=== PATIENT | female | born 1965 | race Caucasian/White ===

== ENCOUNTER → 2016-11-19 | Outpatient (CLI) | payer MEDICAID ==
--- NOTE | 2016-11-21 08:49 | MM ---
Reason for exam: screening (asymptomatic). Last mammogram was performed 2 years ago. History: Family history of breast cancer in maternal grandmother. Took hormonal contraceptives for 1 year 6 months. Physical Findings: A clinical breast exam by your physician is recommended on an annual basis and results should be correlated with mammographic findings. MG 3D Screening Mammo W/Cad Bilateral CC and MLO view(s) were taken. Prior study comparison: November 16, 2014, bilateral MG screening mammo w CAD. June 15, 2013, bilateral digital screening mammo w/CAD. June 01, 2012, bilateral digital screening mammo w/CAD. The breast tissue is heterogeneously dense. This may lower the sensitivity of mammography. No significant changes when compared with prior studies. ASSESSMENT: Negative, BI-RAD 1 RECOMMENDATION: Routine screening mammogram of both breasts in 1 year.
== END | disposition home or self-care (01) ==
LOC: RADMAMWWP 16:31
PROVIDERS: ATTEND Obstetrics & Gynecology
DX: Z12.31 Encounter for screening mammogram for malignant neoplasm of breast (principal)
CPT/HCPCS: 77063; G0202

== ENCOUNTER → 2016-11-26 | Outpatient (CLI) | payer MEDICAID ==
[2016-11-26 08:19] LABS: CH 30.7; CHCM 33.7; HCT 39.7 % (34.0-46.0); HDW 2.31; HGB 13.3 gm/dL (11.4-16.0); MCH 30.7 pg (25.0-35.0); MCHC 33.5 g/dL (31.0-37.0); MCV 91.5 fL (80.0-100.0); Mean Platelet Volume 7.3; RBC 4.34 m/uL (3.80-5.40); RDW 12.5 % (11.5-15.5); WBC 6.2 k/uL (3.8-10.6)
[2016-11-26 08:35] LABS: ALT 28 U/L (9-52); AST 19 U/L (14-36); Alkaline Phosphatase 49 U/L (38-126); Anion Gap 12 mmol/L; Blood Urea Nitrogen 16 mg/dL (7-17); Carbon Dioxide 25 mmol/L (22-30); Chloride 106 mmol/L (98-107); Cholesterol 174 mg/dL (<200); Glucose 83 mg/dL (74-99); HDL Cholesterol 79 mg/dL (40-60); Non-African American GFR(MDRD) >60 (>60 ml/min/1.73 sqM); Potassium 4.8 mmol/L (3.5-5.1); Sodium 143 mmol/L (137-145); Total Bilirubin 0.6 mg/dL (0.2-1.3); Total Protein 7.1 g/dL (6.3-8.2); Triglycerides 40 mg/dL (<150)
== END | disposition home or self-care (01) ==
LOC: LABWHC1 06:31
PROVIDERS: ATTEND Family Medicine
DX: Z00.00 Encounter for general adult medical examination without abnormal findings (principal)
CPT/HCPCS: 36415; 80053; 80061; 84439; 84443; 85027

== ENCOUNTER → 2018-01-13 | Outpatient (CLI) | payer MEDICAID | END | disposition home or self-care (01) | LOC: LABWHC1 07:46 | PROVIDERS: ATTEND Obstetrics & Gynecology | DX: N95.1 Menopausal and female climacteric states (principal) | CPT/HCPCS: 36415; 83001 ==

== ENCOUNTER → 2018-01-20 | Outpatient (CLI) | payer MEDICAID, BC ==
--- NOTE | 2018-01-21 08:14 | BD ---
EXAMINATION TYPE: MG DEXA axial skeleton. DATE OF EXAM: 01/20/2018 COMPARISON: NONE CLINICAL HISTORY: N951 MENOPAUSAL Height: 5 FT 2 1/4 IN Weight: 131 FRAX RISK QUESTIONS: Alcohol (3 or more units per day): NO Family History (Parent hip fracture): UNKNOWN Glucocorticoids (More than 3mos): YES (Ex: prednisone, prednisolone, methylprednisolone, dexamethasone, and hydrocortisone). History of Fracture in Adulthood: YES Secondary Osteoporosis: 1. Type 1 Diabetes: NO 2. Hyperthyroidism: NO 3. Menopause before 45: NO 4. Malnutrition: NO 5. Chronic liver disease: NO Rheumatoid Arthritis: NO Current Tobacco Use: NO RISK FACTORS HISTORY OF: Active: NO Postmenopausal woman: 2011 MEDICATIONS: Prednisone or other steroids: YES How Long: OVER 20 YEARS Additional Medications: ALBUTEROL,SYMBICORT, SINGULAIR, EFFEXOR, MULTI VIT ,CALCIUM Additional History: ASTHMATIC EXAM MEASUREMENTS: Bone mineral densitometry was performed using the [employer] System. Bone mineral density as measured about the Lumbar spine is: ----- L1-L4(G/cm2): 1.032 T Score Values are as follows: ----- L2: -1.8 ----- L3: -1.0 ----- L4: -1.1 ----- L1-L4: -1.2 BASELINE Bone mineral density about the R hip (g/cm2): 0.958 Bone mineral density about the L hip (g/cm2): 0.809 T Score values are as follows: -----R Neck: -0.6 -----L Neck: -1.6 -----R Total: 0.2 -----L Total: -0.8 BASELINE IMPRESSION: Osteopenia lumbar spine. NOTE: T-SCORE=SD OF THE YOUNG ADULT MEAN.
== END | disposition home or self-care (01) ==
LOC: RADBDWWP 16:07
PROVIDERS: ATTEND Obstetrics & Gynecology
DX: M85.88 Other specified disorders of bone density and structure, other site (principal)
CPT/HCPCS: 77080

== ENCOUNTER → 2018-02-10 | Outpatient (CLI) | payer MEDICAID, BC ==
--- NOTE | 2018-02-12 11:41 | MM ---
Reason for exam: screening (asymptomatic). Last mammogram was performed 1 year and 3 months ago. History: Family history of breast cancer in maternal grandmother. Took hormonal contraceptives for 1 year 6 months. Physical Findings: A clinical breast exam by your physician is recommended on an annual basis and results should be correlated with mammographic findings. MG 3D Screening Mammo W/Cad Bilateral CC and MLO view(s) were taken. Prior study comparison: November 19, 2016, bilateral MG 3d screening mammo w/cad. November 16, 2014, bilateral MG screening mammo w CAD. The breast tissue is heterogeneously dense. This may lower the sensitivity of mammography. No significant changes when compared with prior studies. ASSESSMENT: Negative, BI-RAD 1 RECOMMENDATION: Routine screening mammogram of both breasts in 1 year.
== END | disposition home or self-care (01) ==
LOC: RADMAMWWP 16:20
PROVIDERS: ATTEND Obstetrics & Gynecology
DX: Z12.31 Encounter for screening mammogram for malignant neoplasm of breast (principal)
CPT/HCPCS: 77063; 77067

== ENCOUNTER → 2018-03-09 | Outpatient (CLI) | payer MEDICAID, BC ==
[2018-03-09 08:30] LABS: HCT 39.7 % (34.0-46.0); HGB 13.4 gm/dL (11.4-16.0); MCH 29.7 pg (25.0-35.0); MCHC 33.8 g/dL (31.0-37.0); MCV 87.8 fL (80.0-100.0); Mean Platelet Volume 6.8; Platelet Count 307 k/uL (150-450); RBC 4.53 m/uL (3.80-5.40); RDW 12.4 % (11.5-15.5); WBC 4.4 k/uL (3.8-10.6)
[2018-03-09 08:50] LABS: ALT 27 U/L (9-52); AST 23 U/L (14-36); Albumin 4.3 g/dL (3.5-5.0); Alkaline Phosphatase 52 U/L (38-126); Anion Gap 11 mmol/L; Blood Urea Nitrogen 13 mg/dL (7-17); Calcium 9.6 mg/dL (8.4-10.2); Carbon Dioxide 28 mmol/L (22-30); Chloride 101 mmol/L (98-107); Cholesterol 188 mg/dL (<200); Glucose 81 mg/dL (74-99); HDL Cholesterol 83 mg/dL (40-60); LDL Cholesterol,Calculated 96 mg/dL (0-99); Potassium 4.4 mmol/L (3.5-5.1); Sodium 140 mmol/L (137-145); Total Bilirubin 0.6 mg/dL (0.2-1.3); Total Protein 6.8 g/dL (6.3-8.2); Triglycerides 45 mg/dL (<150)
== END | disposition home or self-care (01) ==
LOC: LABWHC1 07:53
PROVIDERS: ATTEND Family Medicine
DX: Z00.00 Encounter for general adult medical examination without abnormal findings (principal); M85.80 Other specified disorders of bone density and structure, unspecified site
CPT/HCPCS: 36415; 80053; 80061; 82306; 84439; 84443; 85027

== ENCOUNTER → 2019-02-17 | Outpatient (CLI) | payer MEDICAID, OTHER ==
[2019-02-17 16:53] LABS: Basophils % (A) 0 %; Eosinophils # (A) 0.1 k/uL (0-0.7); Eosinophils % (A) 1 %; HCT 39.4 % (34.0-46.0); HGB 12.8 gm/dL (11.4-16.0); Lymphocytes # (A) 1.1 k/uL (1.0-4.8); Lymphocytes % (A) 14 %; MCH 29.2 pg (25.0-35.0); MCHC 32.5 g/dL (31.0-37.0); MCV 89.7 fL (80.0-100.0); Monocytes # (A) 0.5 k/uL (0-1.0); Monocytes % (A) 6 %; Neutrophils # (A) 6.5 k/uL (1.3-7.7); Neutrophils % (A) 79 %; Platelet Count 391 k/uL (150-450); RDW 13.6 % (11.5-15.5); WBC 8.3 k/uL (3.8-10.6)
== END ==
LOC: LABWHC1 15:32
PROVIDERS: ATTEND Allergy & Immunology
DX: J45.40 Moderate persistent asthma, uncomplicated (principal)
CPT/HCPCS: 36415; 85025

== ENCOUNTER → 2019-05-26 | Outpatient (CLI) | payer MEDICAID, BC ==
--- NOTE | 2019-05-27 09:15 | MM ---
Reason for exam: screening (asymptomatic). Last mammogram was performed 1 year and 3 months ago. History: Family history of breast cancer in maternal grandmother. Took hormonal contraceptives for 1 year 6 months. Physical Findings: A clinical breast exam by your physician is recommended on an annual basis and results should be correlated with mammographic findings. MG 3D Screening Mammo W/Cad Bilateral CC and MLO view(s) were taken. Prior study comparison: February 10, 2018, bilateral MG 3d screening mammo w/cad. November 19, 2016, bilateral MG 3d screening mammo w/cad. The breast tissue is heterogeneously dense. This may lower the sensitivity of mammography. There is no discrete abnormality. No significant changes when compared with prior studies. ASSESSMENT: Negative, BI-RAD 1 RECOMMENDATION: Routine screening mammogram of both breasts in 1 year.
== END | disposition home or self-care (01) ==
LOC: RADMAMWWP 15:34
PROVIDERS: ATTEND Obstetrics & Gynecology
DX: Z12.31 Encounter for screening mammogram for malignant neoplasm of breast (principal)
CPT/HCPCS: 77063; 77067

== ENCOUNTER → 2020-01-13 | Outpatient (CLI) | payer MEDICAID, BC ==
[2020-01-13 10:40] LABS: ALT 12 U/L (8-44); AST 18 U/L (13-35); African American GFR (CKD) 119.8 (60.0-200.0); Alkaline Phosphatase 61 U/L (41-126); BUN/Creat Ratio 23.33 Ratio (12.00-20.00); Calcium 9.2 mg/dL (8.7-10.3); Carbon Dioxide 30.7 mmol/L (21.6-31.8); Chloride 105 mmol/L (96-109); Chol/HDL Ratio 2.25; Cholesterol 187 mg/dL (0-200); Globulin 2.1 g/dL (1.6-3.3); Glucose 77 mg/dL (70-110); Non-African American GFR(CKD) 103.3 (60.0-200.0); Potassium 4.1 mmol/L (3.5-5.5); Sodium 140 mmol/L (135-145); Total Bilirubin 0.7 mg/dL (0.3-1.2); Total Protein 6.5 g/dL (6.2-8.2); Triglycerides <50.0 mg/dL (0.0-149.0)
== END | disposition home or self-care (01) ==
LOC: LABWHC1 06:54
PROVIDERS: ATTEND Family Medicine
DX: Z00.00 Encounter for general adult medical examination without abnormal findings (principal)
CPT/HCPCS: 36415; 80053; 80061; 84443

== ENCOUNTER → 2021-01-08 | Outpatient (CLI) | payer MEDICAID, BC | END | disposition home or self-care (01) | LOC: CPPFTMAIN 16:06 | PROVIDERS: ATTEND Allergy & Immunology | DX: J44.9 Chronic obstructive pulmonary disease, unspecified (principal) | CPT/HCPCS: 94060; 94726; 94729 ==

== ENCOUNTER → 2021-01-11 | Outpatient (CLI) | payer MEDICAID, BC ==
--- NOTE | 2021-01-11 16:58 | BD ---
EXAMINATION TYPE: Axial Bone Density DATE OF EXAM: 01/11/2021 COMPARISON: 01/20/2018 CLINICAL HISTORY: Postmenopausal screening Height: 5 FT 2 IN Weight: 131 FRAX RISK QUESTIONS: Alcohol (3 or more units per day): NO Family History (Parent hip fracture): UNKNOWN Glucocorticoids (More than 3mos): YES (Ex: prednisone, prednisolone, methylprednisolone, dexamethasone, and hydrocortisone). History of Fracture in Adulthood: YES Secondary Osteoporosis: 1. Type 1 Diabetes: NO 2. Hyperthyroidism: NO 3. Menopause before 45: NO 4. Malnutrition: NO 5. Chronic liver disease: NO Rheumatoid Arthritis: NO Current Tobacco Use: NO RISK FACTORS HISTORY OF: Surgery to Spine/Hip(right/left)/Wrist (right/left): NO Family History of Osteoporosis is: UNSURE Active: NO Diet low in dairy products/other sources of calcium: NO Postmenopausal woman: 2011 Take estrogen and/or progesterone medications: NONE Lost more than 2 inches in height since high school: NO MEDICATIONS: Additional Medications: ALBUTEROL, SYMBICORT, PROZAC, SINGULAIR, ZYRTEC Additional History: ASTHMA EXAM MEASUREMENTS: Bone mineral densitometry was performed using the [employer] System. Bone mineral density as measured about the Lumbar spine is: ----- L1-L4(G/cm2): 0.973 T Score Values are as follows: ----- L2: -2.4 ----- L3: -1.4 ----- L4: -1.9 ----- L1-L4: -1.7 Bone mineral density has: DECREASED -6.6 % since study of: 2017 Bone mineral density about the R hip (g/cm2): 0.814 Bone mineral density about the L hip (g/cm2): 0.809 T Score values are as follows: -----R Neck: -1.6 -----L Neck: -1.6 -----R Total: -0.7 -----L Total: -1.0 Bone mineral density has: DECREASED -2.8 % since study of: 2017 IMPRESSION: Osteopenia (T Score between -2.5 and -1). There is slightly increased risk of fracture and the patient may be considered for treatment. Re-Screen 2-5 years. NOTE: T-SCORE=SD OF THE YOUNG ADULT MEAN.
== END | disposition home or self-care (01) ==
LOC: RADBDWWP 07:14
PROVIDERS: ATTEND Obstetrics & Gynecology
DX: M85.80 Other specified disorders of bone density and structure, unspecified site (principal)
CPT/HCPCS: 77080

== ENCOUNTER → 2021-01-30 | Outpatient (CLI) | payer MEDICAID, BC ==
--- NOTE | 2021-02-01 09:58 | MM ---
Reason for exam: screening (asymptomatic). Last mammogram was performed 1 year and 8 months ago. History: Family history of breast cancer in maternal grandmother. Took hormonal contraceptives for 1 year 6 months. Physical Findings: A clinical breast exam by your physician is recommended on an annual basis and results should be correlated with mammographic findings. MG 3D Screening Mammo W/Cad Bilateral CC and MLO view(s) were taken. Prior study comparison: May 26, 2019, bilateral MG 3d screening mammo w/cad. February 10, 2018, bilateral MG 3d screening mammo w/cad. The breast tissue is heterogeneously dense. This may lower the sensitivity of mammography. There is no discrete abnormality. No significant changes when compared with prior studies. ASSESSMENT: Negative, BI-RAD 1 RECOMMENDATION: Routine screening mammogram of both breasts in 1 year.
== END | disposition home or self-care (01) ==
LOC: RADMAMWWP 09:40
PROVIDERS: ATTEND Obstetrics & Gynecology
DX: Z12.31 Encounter for screening mammogram for malignant neoplasm of breast (principal); Z80.3 Family history of malignant neoplasm of breast
CPT/HCPCS: 77063; 77067

== ENCOUNTER → 2021-02-25 | Outpatient (CLI) | payer MEDICAID, BC ==
--- NOTE | 2021-02-25 15:41 | XR ---
EXAMINATION TYPE: XR chest 2V DATE OF EXAM: 02/25/2021 COMPARISON: NONE HISTORY: Shortness of breath TECHNIQUE: Frontal and lateral views of the chest are obtained. FINDINGS: Scattered senescent parenchymal changes noted. Hyperinflation compatible with COPD. No evidence for infiltrate. No evidence for atelectasis. Heart size is stable. Mediastinal structures are stable and grossly unremarkable. No evidence for hilar prominence. Degenerative changes dorsal spine. IMPRESSION: 1. No evidence for acute pulmonary disease.
== END | disposition home or self-care (01) ==
LOC: RADXRMAIN 15:25
PROVIDERS: ATTEND Allergy & Immunology
DX: R06.02 Shortness of breath (principal)
CPT/HCPCS: 71046

== ENCOUNTER → 2021-02-28 | Outpatient (CLI) | payer MEDICAID, BC ==
[2021-02-28 10:33] LABS: Basophils # (A) 0.02 X 10*3/uL (0.00-0.10); Basophils % (A) 0.4 %; Eosinophils # (A) 0.08 X 10*3/uL (0.04-0.35); Eosinophils % (A) 1.5 %; HCT 39.7 % (37.2-46.3); HGB 13.2 g/dL (12.0-15.0); Lymphocytes % (A) 18.6 %; MCH 29.7 pg (27.0-32.0); MCHC 33.2 g/dL (32.0-37.0); MCV 89.4 fL (80.0-97.0); Mean Platelet Volume 9.4 fL (9.5-12.2); Monocytes # (A) 0.66 X 10*3/uL (0.20-1.00); Monocytes % (A) 12.3 %; Neutrophils # (A) 3.61 X 10*3/uL (1.80-7.70); Platelet Count 287 X 10*3/uL (140-440); RBC 4.44 X 10*6/uL (4.10-5.20); WBC 5.38 X 10*3/uL (4.50-10.00)
[2021-03-01 12:57] LABS: Alpha 1 Anti-Trypsin 117 mg/dL (90 - 200)
== END | disposition home or self-care (01) ==
LOC: LABWHC1 07:16
PROVIDERS: ATTEND Allergy & Immunology
DX: J45.40 Moderate persistent asthma, uncomplicated (principal)
CPT/HCPCS: 36415; 82103; 82104; 82785; 85025

== ENCOUNTER → 2021-12-02 | Outpatient (CLI) | payer MEDICAID, BC ==
[2021-12-02 10:10] LABS: HCT 38.1 % (37.2-46.3); HGB 12.6 g/dL (12.0-15.0); MCH 29.4 pg (27.0-32.0); MCHC 33.1 g/dL (32.0-37.0); MCV 88.8 fL (80.0-97.0); Mean Platelet Volume 9.2 fL (9.5-12.2); Platelet Count 293 X 10*3/uL (140-440); RBC 4.29 X 10*6/uL (4.10-5.20); RDW 12.1 % (11.5-14.5); WBC 4.44 X 10*3/uL (4.50-10.00)
[2021-12-02 10:44] LABS: African American GFR (CKD) 112.3 (60.0-200.0); Albumin 4.5 g/dL (3.8-4.9); Albumin/Globulin Ratio 1.96 (1.60-3.17); Anion Gap 11.4 mmol/L (10.00-18.00); BUN/Creat Ratio 21.57 Ratio (12.00-20.00); Basophils # (A) 0.03 X 10*3/uL (0.00-0.10); Basophils % (A) 0.7 %; Blood Urea Nitrogen 15.1 mg/dL (9.0-27.0); Calcium 9.3 mg/dL (8.7-10.3); Carbon Dioxide 23.6 mmol/L (20.0-27.5); Eosinophils # (A) 0.42 X 10*3/uL (0.04-0.35); Eosinophils % (A) 9.5 %; Globulin 2.3 g/dL (1.6-3.3); HDL Cholesterol 62.1 mg/dL (40.00-60.00); Lymphocytes # (A) 1.18 X 10*3/uL (0.90-5.00); Lymphocytes % (A) 26.6 %; Monocytes # (A) 0.35 X 10*3/uL (0.20-1.00); Monocytes % (A) 7.9 %; Neutrophils # (A) 2.45 X 10*3/uL (1.80-7.70); Neutrophils % (A) 55.1 %; Non-African American GFR(CKD) 96.9 (60.0-200.0); T4, Free (Free Thyroxine) 1.1 ng/dL (0.800-1.800); Total Bilirubin 0.3 mg/dL (0.30-1.20); Total Protein 6.8 g/dL (6.2-8.2); Triglycerides 39.9 mg/dL (0.00-149.00)
[2021-12-02 10:52] LABS: Chol/HDL Ratio 2.58 Ratio; LDL Cholesterol,Direct Reflex 88.6 mg/dL (0.00-129.00)
== END | disposition home or self-care (01) ==
LOC: LABWHC1 07:19
PROVIDERS: ATTEND Family Medicine
DX: Z00.00 Encounter for general adult medical examination without abnormal findings (principal); R53.83 Other fatigue; E55.9 Vitamin D deficiency, unspecified
CPT/HCPCS: 36415; 80053; 80061; 82306; 83721; 84439; 84443; 85025

== ENCOUNTER → 2022-05-02 | Outpatient (CLI) | payer MEDICAID, BC ==
--- NOTE | 2022-05-06 08:05 | MM ---
Reason for Exam: Screening (asymptomatic). Last mammogram was performed 1 year(s) and 4 month(s) ago. Patient History: Menarche at age 14. First Full-Term at age 26. Postmenopausal. Hormonal Contraceptives for 1 year, 6 months, until age 44. Maternal grandmother had breast cancer. Risk Values: Tigist 5 year model risk: 1.2%. NCI Lifetime model risk: 8.1%. Prior Study Comparison: 02/10/2018 Bilateral Screening Mammogram, [facility]. 05/26/2019 Bilateral Screening Mammogram, [facility]. 01/30/2021 Bilateral Screening Mammogram, [facility]. Tissue Density: The breast tissue is heterogeneously dense. This may lower the sensitivity of mammography. Findings: Analyzed By CAD. There is no suspicious group of microcalcifications or new suspicious mass in either breast. Overall Assessment: Negative, BI-RAD 1 Management: Screening Mammogram of both breasts in 1 year. A clinical breast exam by your physician is recommended on an annual basis and results should be correlated with mammographic findings. Electronically signed and approved by: Suleman Norton M.D. Radiologis
== END | disposition home or self-care (01) ==
LOC: RADMAMWWP 16:16
PROVIDERS: ATTEND Obstetrics & Gynecology
DX: Z12.31 Encounter for screening mammogram for malignant neoplasm of breast (principal)
CPT/HCPCS: 77063; 77067

== ENCOUNTER → 2022-06-04 | Outpatient (CLI) | payer MEDICAID, BC ==
--- NOTE | 2022-06-04 13:12 | US ---
EXAMINATION TYPE: US pelvic complete DATE OF EXAM: 06/04/2022 COMPARISON: 01/02/2016 CLINICAL HISTORY: 56-year-old female R10.32 LEFT LOWER QUADRANT PAIN. Left pelvic pain, history of ut erine ablation, tubal ligation and 2 c-sections TECHNIQUE: Transabdominal sonographic images of the pelvis were acquired. Date of LMP: 2009 FINDINGS: EXAM MEASUREMENTS: Uterus: 6.4 x 2.7 x 4.2 cm Endometrial Stripe: 0.3 cm Right Ovary: 2.2 x 1.2 x 1.8 cm Left Ovary: 2.9 x 1.5 x 2.7 cm 1. Uterus: anteverted, heterogeneous myometrium. 2. Endometrium: appears wnl 3. Right Ovary: wnl 4. Left Ovary: wnl 5. Bilateral Adnexa: wnl 6. Posterior cul-de-sac: wnl IMPRESSION: Heterogeneous myometrium could reflect diffuse small fibroid change. Endometrial stripe thin at 3 mm.
--- NOTE | 2022-06-04 13:36 | US ---
EXAMINATION TYPE: US abdomen complete DATE OF EXAM: 06/04/2022 COMPARISON: 01/02/2016 CLINICAL HISTORY: 56-year-old female R10.32 LEFT LOWER QUADRANT PAIN. Left pelvic pain TECHNIQUE: Multiple sonographic images of the abdomen are obtained. FINDINGS: EXAM MEASUREMENTS: Liver Length: 13.3 cm Gallbladder Wall: 0.1 cm CBD: 0.6 cm Spleen: 8.5 cm Right Kidney: 9.6 x 3.8 x 5.3 cm Left Kidney: 9.7 x 5.1 x 4.0 cm Pancreas: wnl Liver: wnl Gallbladder: wnl Evidence for sonographic Juares's sign: no CBD: borderline dilated Spleen: visualized portions wnl, limited by overlying bowel gas Right Kidney: wnl Left Kidney: wnl Upper IVC: wnl Abd Aorta: wnl IMPRESSION: 1. Bile duct upper limits of normal in caliber at 6 mm, likely normal given patient's age. Correlate with alkaline phosphatase and bilirubin levels. 2. No gallstones or other specific abnormality seen.
== END | disposition home or self-care (01) ==
LOC: RADUSWWP 07:04
PROVIDERS: ATTEND Family Medicine
DX: R10.32 Left lower quadrant pain (principal)
CPT/HCPCS: 76700; 76856

== ENCOUNTER → 2022-09-12 | Outpatient (CLI) | payer MEDICAID, BC | END | disposition home or self-care (01) | LOC: RADCTMAIN 16:03 | PROVIDERS: ATTEND Surgery | DX: Z53.9 Procedure and treatment not carried out, unspecified reason (principal) ==

== ENCOUNTER → 2022-09-18 | Outpatient (CLI) | payer MEDICAID, BC ==
--- NOTE | 2022-09-18 16:21 | CT ---
EXAMINATION TYPE: CT abdomen pelvis w con CT DLP: 643.90 mGycm, Automated exposure control for dose reduction was used. DATE OF EXAM: 09/18/2022 4:09 PM COMPARISON: Abdominal and pelvic ultrasound 06/04/2022, CT abdomen and pelvis 09/05/2010.. CLINICAL INDICATION:Female, 57 years old with history of K42.9 UMBILICAL HERNIA; umbilical and abdomi nal pain x3 months. TECHNIQUE: Standard CT of the abdomen and pelvis following the administration of 100 cc of Isovue 3 00 IV contrast material and oral contrast. Coronal and sagittal reformats were performed. FINDINGS: LOWER CHEST: Unremarkable ABDOMEN LIVER: Unremarkable GALLBLADDER AND BILE DUCTS: Unremarkable. PANCREAS: Unremarkable. SPLEEN: Unremarkable. ADRENAL GLANDS: Unremarkable. KIDNEYS AND URETERS: No evidence of hydronephrosis or renal calculus. The kidneys enhance symmetrical ly without suspicious focal lesion. PELVIS BLADDER: Unremarkable REPRODUCTIVE: Unremarkable. ABDOMEN & PELVIS STOMACH AND BOWEL: Stomach is unremarkable. 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 No focal wall thickening or surrounding inflammatory changes. The enteric contrast reaches the rectum. No evidence of bowel obstruction. PERITONEUM: No evidence of pneumoperitoneum or free fluid. VASCULATURE: No evidence of aortic aneurysm. MUSCULOSKELETAL: No acute osseous abnormalities. Suggested L3 and L4 limbus vertebrae. LYMPH NODES: No gross evidence for lymphadenopathy. SOFT TISSUE/ABDOMINAL WALL: No umbilical hernia. IMPRESSION: No acute abdominal/pelvic process. No umbilical hernia.
== END | disposition home or self-care (01) ==
LOC: RADCTMAIN 15:35
PROVIDERS: ATTEND Surgery
DX: K42.9 Umbilical hernia without obstruction or gangrene (principal)
CPT/HCPCS: 74177; Q9967

== ENCOUNTER → 2023-05-07 | Outpatient (CLI) | payer MEDICAID, BC ==
--- NOTE | 2023-05-08 08:20 | MM ---
Reason for Exam: Screening (asymptomatic). Last screening mammogram was performed 12 month(s) ago. Patient History: Menarche at age 14. First Full-Term at age 26. Postmenopausal. Patient has history of breast feeding. Hormonal Contraceptives for 1 year, 6 months, until age 44. Maternal grandmother had breast cancer. Risk Values: Tigist 5 year model risk: 1.3%. NCI Lifetime model risk: 8.0%. Prior Study Comparison: 05/26/2019 Bilateral Screening Mammogram, [facility]. 01/30/2021 Bilateral Screening Mammogram, [facility]. 05/02/2022 Bilateral MG 3D screening mammo w/cad, [facility]. Tissue Density: The breast tissue is heterogeneously dense. This may lower the sensitivity of mammography. Findings: Analyzed By CAD. Findings appears symmetrical and stable. No significant interval change is evident. No suspicious groups of microcalcifications, spiculated or lobular masses, architectural distortion or other secondary signs of malignancy are mammographically apparent. Overall Assessment: Benign, BI-RAD 2 Management: Screening Mammogram of both breasts in 1 year. A negative mammogram report should not preclude additional follow up of suspicious palpable abnormalities. Patient should continue monthly self breast exam. A clinical breast exam by your physician is recommended on an annual basis and results should be correlated with mammographic findings. Electronically signed and approved by: Mario Faria D.O. Radiologis
== END | disposition home or self-care (01) ==
LOC: RADMAMWWP 09:46
PROVIDERS: ATTEND Obstetrics & Gynecology
DX: Z12.31 Encounter for screening mammogram for malignant neoplasm of breast (principal); Z78.0 Asymptomatic menopausal state; Z80.3 Family history of malignant neoplasm of breast
CPT/HCPCS: 77063; 77067

== ENCOUNTER → 2024-02-16 | Outpatient (CLI) | payer MEDICAID, BC ==
[2024-02-16 15:57] LABS: Basophils # (A) 0.03 X 10*3/uL (0.00-0.10); Basophils % (A) 0.6 %; Eosinophils # (A) 0.47 X 10*3/uL (0.04-0.35); Eosinophils % (A) 9.8 %; HCT 37.9 % (37.2-46.3); HGB 12.4 g/dL (12.0-15.0); Lymphocytes % (A) 18.7 %; MCH 29.6 pg (27.0-32.0); MCHC 32.7 g/dL (32.0-37.0); MCV 90.5 FL (80.0-97.0); Mean Platelet Volume 9.1 FL (9.5-12.2); Monocytes # (A) 0.48 X 10*3/uL (0.20-1.00); NRBC Per 100 WBC 0 X 10*3/uL (0.00-0.01); Neutrophils # (A) 2.92 X 10*3/uL (1.80-7.70); Neutrophils % (A) 60.7 %; Platelet Count 281 X 10*3/uL (140-440); RBC 4.19 X 10*6/uL (4.10-5.20); RDW 12.4 % (11.5-14.5); WBC 4.81 X 10*3/uL (4.50-10.00)
[2024-02-16 16:27] LABS: ALT 14 U/L (8-44); AST 17 U/L (13-35); Albumin 4.3 g/dL (3.8-4.9); Albumin/Globulin Ratio 1.95 Ratio (1.60-3.17); Alkaline Phosphatase 71 U/L (41-126); BUN/Creat Ratio 25.67 Ratio (12.00-20.00); Blood Urea Nitrogen 15.4 mg/dL (9.0-27.0); Calcium 9.6 mg/dL (8.7-10.3); Carbon Dioxide 25.4 mmol/L (21.6-31.8); Chloride 104 mmol/L (96-109); Chol/HDL Ratio 2.42 Ratio; Globulin 2.2 g/dL (1.6-3.3); Glucose 89 mg/dL (70-110); LDL Cholesterol,Calculated 110.6 mg/dL (0.0-131.0); Potassium 4.5 mmol/L (3.5-5.5); Sodium 139 mmol/L (135-145); Total Bilirubin 0.3 mg/dL (0.3-1.2); Total Protein 6.5 g/dL (6.2-8.2); VLDL Calculation 7.32 mg/dL (5.00-40.00)
== END | disposition home or self-care (01) ==
LOC: LABWHC1 08:06
PROVIDERS: ATTEND Family Medicine
DX: Z00.00 Encounter for general adult medical examination without abnormal findings (principal); E55.9 Vitamin D deficiency, unspecified
CPT/HCPCS: 36415; 80053; 80061; 82306; 85025

== ENCOUNTER 2024-06-15 10:30 | Day surgery (SDC) | payer MEDICAID, BC ==
[~2024-06-15 10:30] MED LIST: LACTATED RINGERS 1,000 ML BAG ONE; LIDOCAINE 1% INJ 10MG/ML (20 ML MDV) ONE; PROPOFOL 10 MG/ML 20 ML VIAL IV ONE
--- NOTE | 2024-06-24 15:53 | OP ---
OPERATIVE REPORT DATE OF SERVICE : 06/15/2024 REQUESTING PHYSICIAN: Velvet yN MD. BRIEF HISTORY: The patient is a 58-year-old pleasant white female, scheduled for elective colonoscopy as a part of evaluation of change in bowel habits for the last several months' duration. PROCEDURE PERFORMED: Colonoscopy. PREOPERATIVE DIAGNOSIS: Change in bowel habits. ANESTHESIA: IV sedation per Anesthesia. DESCRIPTION OF PROCEDURE: After informed consent was obtained from the patient, she was brought into the endoscopy unit. IV conscious sedation was administered by Anesthesia under continuous monitoring. Initial digital rectal examination was normal. The Olympus CF-190 video colonoscope was then inserted into the rectum, gradually advanced into the cecum. Careful examination was performed as the scope was gradually being withdrawn. The ileocecal valve and appendiceal orifice were visualized and appeared normal. The prep was excellent. Mucosa of the cecum, ascending colon, transverse colon, descending colon, sigmoid colon, and rectum appeared normal. In the rectum, retroflexion was performed. No lesions were noted and the patient tolerated the procedure well. IMPRESSION: Normal-appearing colon from rectum to cecum with no evidence of colitis or colorectal neoplasia. RECOMMENDATIONS: Findings of this examination were discussed with the patient as well as her family. She was advised to have a repeat screening colonoscopy in 10 years. In the meantime, she will continue with Linzess every day and add MiraLAX 1 scoop twice daily. MMODL / IJN: [id number] /
== END 2024-06-15 11:20 ==
LOC: ORWHC2ENDO 10:30
PROVIDERS: ATTEND Internal Medicine Gastroenterology
DX: R19.4 Change in bowel habit
CPT/HCPCS: 45378

== ENCOUNTER → 2024-06-23 | Outpatient (CLI) | payer MEDICAID, BC | END | disposition home or self-care (01) | LOC: LABWHC1 15:20 | PROVIDERS: ATTEND Internal Medicine Gastroenterology | DX: K59.9 Functional intestinal disorder, unspecified | CPT/HCPCS: 36415; 83516; 85652 ==

== ENCOUNTER → 2024-07-05 | Outpatient (CLI) | payer MEDICAID, BC ==
--- NOTE | 2024-07-08 16:41 | BD ---
EXAMINATION TYPE: Axial Bone Density DATE OF EXAM: 07/05/2024 CLINICAL HISTORY: 58 years old Female. ICD-10 CODE: Z780 MENOPAUSAL Height: 62 Weight: 142 FRAX RISK QUESTIONS: Family History (Parent hip fracture): unknown Glucocorticoids (More than 3mos): yes (Ex: prednisone, prednisolone, methylprednisolone, dexamethasone, and hydrocortisone). History of Fracture in Adulthood: yes 3. Menopause before 45: no RISK FACTORS HISTORY OF: asthma MEDICATIONS: albuterol, symbicort, prozac, singulair, zyrtec, calcium, vit d EXAM MEASUREMENTS: Bone mineral densitometry was performed using the [employer] System. Bone mineral density as measured about the Lumbar spine is: ----- L1-L4(G/cm2): 0.957 T Score Values are as follows: ----- L1: -1.9 ----- L2: -2.6 ----- L3: -1.7 ----- L4: -1.5 ----- L1-L4: -1.9 Z Score Values are as follows: ----- L1: -0.7 ----- L2: -0.4 ----- L3: -0.6 ----- L4: -0.4 ----- L1-L4: -0.7 Bone mineral density has: Decreased -1.6% since study of: 01.20.2021 Bone mineral density about the R hip (g/cm2): 0.896 Bone mineral density about the L hip (g/cm2): 0.895 T Score values are as follows: -----R Neck: -1.7 -----L Neck: -1.6 -----R Total: -0.9 -----L Total: -0.9 Z Score values are as follows: -----R Neck: -0.5 -----L Neck: -0.4 -----R Total: 0.0 -----L Total: 0.0 Bone mineral density has: Decreased -0.3% since study of: 01.11.2021 FRAX%s: The graph provided illustrates a 13.3% chance for a major osteoporotic fx and a 1.5% chance f or the hips probability for fx in 10 years time. IMPRESSION: Osteopenia (T Score between -2.5 and -1). There is slightly increased risk of fracture and the patient may be considered for treatment. Re-Screen 2-5 years. NOTE: T-SCORE=SD OF THE YOUNG ADULT MEAN.
--- NOTE | 2024-07-10 12:41 | MM ---
Reason for Exam: Screening (asymptomatic). Last mammogram was performed 1 year(s) and 2 month(s) ago. Patient History: Menarche at age 14. First Full-Term at age 26. Postmenopausal. Patient has history of breast feeding. Hormonal Contraceptives for 1 year, 6 months, until age 44. Maternal grandmother had breast cancer. Risk Values: Tigist 5 year model risk: 1.4%. NCI Lifetime model risk: 7.8%. Prior Study Comparison: 01/30/2021 Bilateral Screening Mammogram, [facility]. 05/02/2022 Bilateral MG 3D screening mammo w/cad, [facility]. 05/07/2023 Bilateral MG 3D screening mammo w/cad, [facility]. Tissue Density: There are scattered areas of fibroglandular density. Findings: Analyzed By CAD. Right breast: There is no suspicious group of microcalcifications or new suspicious mass. Left breast: There is no suspicious group of microcalcifications or new suspicious mass. Overall Assessment: Negative, BI-RAD 1 Management: Screening Mammogram of both breasts in [address] [facility] will attempt to contact patient to return for supplemental views and ultrasound if indicated. Patient should continue monthly self-breast exams. A clinical breast exam by your physician is recommended on an annual basis. This exam should not preclude additional follow-up of suspicious palpable abnormalities. Note on Tigist scores and lifetime risk: 1. A Tigist score greater than 3% is considered moderate risk. If this is the case, consider specialist referral to assess eligibility for a risk reducing agent. 2. If overall lifetime risk for the development of breast cancer is 20% or higher, the patient may qualify for future screening with alternating mammogram and breast MRI. Electronically signed and approved by: Hever Waterman DO
== END | disposition home or self-care (01) ==
LOC: RADMAMWWP 07:17
PROVIDERS: ATTEND Obstetrics & Gynecology
DX: Z12.31 Encounter for screening mammogram for malignant neoplasm of breast (principal); R92.323 Mammographic fibroglandular density, bilateral breasts; M81.0 Age-related osteoporosis without current pathological fracture; M85.89 Other specified disorders of bone density and structure, multiple sites; Z78.0 Asymptomatic menopausal state; Z80.3 Family history of malignant neoplasm of breast; Z79.51 Long term (current) use of inhaled steroids
CPT/HCPCS: 77063; 77067; 77080

== ENCOUNTER → 2024-07-18 | Outpatient (CLI) | payer MEDICAID, BC | END | disposition home or self-care (01) | LOC: LABWHC1 09:00 | PROVIDERS: ATTEND Otolaryngology | DX: K11.7 Disturbances of salivary secretion (principal) | CPT/HCPCS: 36415; 86235 ==

== ENCOUNTER → 2024-07-19 | Outpatient (CLI) | payer MEDICAID, BC ==
--- NOTE | 2024-07-21 08:11 | FL ---
EXAMINATION TYPE: FL sialography DATE OF EXAM: 07/19/2024 COMPARISON: None HISTORY: Occasional swelling right parotid region TECHNIQUE: Procedure was explained to the patient, risks, complications and benefits. All questions are answered . Written and verbal informed consent was obtained. Timeout was performed. Patient had been prepped f or contrast due to prior anaphylactic reaction to uncertain substance. Patient was placed on the fluoroscopy table. Multiple attempts to access the parotid gland duct were unsuccessful. Probe attempts were unsuccessful. Procedure was terminated. Difficulties were discussed with the patient. Patient was released in stabl e condition. FINDINGS: 2 fluoroscopic spot images were obtained in preparation for this study. No obvious calcific ations identified. IMPRESSION: 1. Unsuccessful sialogram. [facility], , 07/21/2024 8:09 AM
== END | disposition home or self-care (01) ==
LOC: RADUSWWP 07-18 13:21
PROVIDERS: ATTEND Otolaryngology
DX: K11.22 Acute recurrent sialoadenitis
CPT/HCPCS: 70390

== ENCOUNTER → 2024-11-16 | Outpatient (CLI) | payer MEDICAID, BC ==
--- NOTE | 2024-11-16 14:35 | XR ---
Chest, 2 view. HISTORY: Cough. COMPARISON: 02/25/2021 TECHNIQUE: PA and lateral views the chest are obtained. FINDINGS: The lungs are clear and there is no consolidative or interstitial opacity. There is no pleural effusion or pneumothorax. The heart, pulmonary vasculature, mediastinum and franco appear normal. The osseous structures are intact. IMPRESSION: No significant abnormality seen. No acute cardiopulmonary disease. [facility], , 11/16/2024 2:33 PM
== END | disposition home or self-care (01) ==
LOC: RADXRMAIN 14:11
PROVIDERS: ATTEND Family Medicine
DX: R05.9 Cough, unspecified (principal)
CPT/HCPCS: 71046